=== PATIENT | male | born 1960 | race Caucasian/White ===

== ENCOUNTER 2021-11-26 19:55 | Emergency (ER) | payer OTHER, MEDICARE ==
[2021-11-26] MEDS ORDERED: ATHLETE S FOOT TOP (20:18)
[2021-11-26] MEDS ORDERED: ATHLETIC FOOT C30 GM TOP (20:18)
== END 2021-11-26 20:22 | disposition home or self-care (01) ==
LOC: FSED 20:00
DX: B35.3 Tinea pedis (principal); M54.9 Dorsalgia, unspecified; G89.29 Other chronic pain
CPT/HCPCS: 99282